=== PATIENT | female | born 1990 | race Caucasian/White ===

== ENCOUNTER 2019-04-15 13:46 | Emergency (ER) | payer MEDICAID, OTHER ==
[2019-04-15] MEDS: HYDROCODONE/APAP (5/325) TAB PO (14:05)
[2019-04-15] MEDS: ONDANSETRON (ODT) 4 MG TAB ODT (14:05)
== END 2019-04-15 15:03 | disposition home or self-care (01) ==
LOC: FTE 13:46
DX: M25.571 Pain in right ankle and joints of right foot (principal)
CPT/HCPCS: 73590; 73610-RT; 73630; 99283-25